=== PATIENT | female | born 1935 | race African-American/Black ===

== ENCOUNTER 2018-10-22 19:00 | Inpatient (IN) ==
[2018-10-22] MEDS ORDERED: ONDANSETRON 4 MG/2 ML VIAL IV STA (19:56)
[2018-10-22] MEDS ORDERED: MORPHINE 4 MG/1 ML VIAL IV STA (19:56)
[2018-10-22 20:04] LABS: Basophils % 0.2 % (0.0-0.8); Eosinophils # 0.1 10*3/uL (0.0-0.87); Eosinophils % 1.2 % (0.00-10.9); Immature Granulocytes % 0.4 %; Immature Granulocytes Absolute 0.03 #; Lymphocytes % 12.4 % (21.3-54.2); Mean Corpuscular Volume 87.1 FL (87-102); Mean Platelet Volume 9.4 FL (9.6-12.0); Monocytes % 2.3 % (1.7-12.7); Neutrophils % 83.5 % (38.7-73.9); Platelet Count 268 T/CUMM (130-400); Red Blood Count 2.87 MC/CUMM (3.8-5.5); Red Cell Distribution Width 17.1 % (9.3-17.3); White Blood Count 8.3 T/CUMM (4-12)
[2018-10-22 20:36] LABS: Albumin 3.2 G/DL (3.4-5.0); Bilirubin,Total 0.5 MG/DL (0.2-1.0); Calcium 8.7 MG/DL (8.5-10.1); Osmolality,Calculated 270.5 MOS/KG (273-304); Total Protein 6.8 G/DL (6.4-8.3)
[2018-10-22 20:47] LABS: Apearance,Urine CLEAR (Clear); Bilirubin,Urine Negative (Negative); Blood, Urine Negative (Negative); Glucose,Urine (UA) Negative (Negative); Ketones,Urine Negative (Negative); Mucus,Urine Occasional /LPF (Occasional); Nitrite,Urine Negative (Negative); Protein,Urine >=500 MG/DL; RBC,Urine 1 /HPF (0-4); Urine Color Yellow (Yellow); Urine Specific Gravity 1.009 (1.001-1.035); Urine Urobilinogen < 2.0 EU/DL (0.2-1.0); WBC,Urine 1 /HPF (0-6)
[2018-10-22 21:02] LABS: Band Neutrophils 1 % (0-10); Eosinophils 1 % (0-10); Lymphocytes 12 % (20-55); Platelet Estimate Normal; Segmented Neutrophils 86 % (50-85); Total Cells Counted 100
[2018-10-22] MEDS ORDERED: KETOROLAC 30 MG/1 ML VIAL IV STA (22:21)
[2018-10-22] MEDS ORDERED: DEXTROSE 50% 25 GM/50 ML VIAL IV PRN (23:34)
[2018-10-22] MEDS ORDERED: ACETAMINOPHEN 325 MG TABLET PO PRN (23:34)
[2018-10-22] MEDS ORDERED: ONDANSETRON 4 MG/2 ML VIAL IV PRN (23:34)
[2018-10-22] MEDS ORDERED: GLUCAGON 1 MG VIAL IM PRN (23:34)
[2018-10-22] MEDS ORDERED: ENOXAPARIN 30 MG/0.3 ML SYRINGE SUBCUT SCH (23:45)
[2018-10-23] MEDS: SODIUM CHLORIDE 0.9% 1,000 ML IV SCH ×2 (02:46→07:47)
[2018-10-23] MEDS: INSULIN REGULAR 100 UNIT/ML SUBCUT SCH ×5 (02:47→20:43)
[2018-10-23 05:33] LABS: Basophils % 0.4 % (0.0-0.8); Eosinophils # 0.1 10*3/uL (0.0-0.87); Eosinophils % 1.4 % (0.00-10.9); Hematocrit 22.8 VOL% (35.7-47.0); Hemoglobin 7.2 GM/DL (12.0-16.0); Immature Granulocytes % 0.4 %; Immature Granulocytes Absolute 0.02 #; Lymphocytes # 0.9 10*3/uL (1.4-4.0); Lymphocytes % 16.1 % (21.3-54.2); Mean Corpuscular HGB Conc 31.6 GM/DL (32-36); Mean Corpuscular Volume 89.4 FL (87-102); Mean Platelet Volume 9.9 FL (9.6-12.0); Monocytes % 2.5 % (1.7-12.7); Neutrophils % 79.2 % (38.7-73.9); Platelet Count 210 T/CUMM (130-400); Red Blood Count 2.55 MC/CUMM (3.8-5.5); White Blood Count 5.6 T/CUMM (4-12)
[2018-10-23 05:51] LABS: Calcium 8.1 MG/DL (8.5-10.1); Osmolality,Calculated 270.4 MOS/KG (273-304)
[2018-10-23] MEDS ORDERED: SODIUM CHLORIDE 0.9% 1,000 ML IV PRN (07:10)
[2018-10-23] MEDS: PANTOPRAZOLE 40 MG TABLET PO SCH (08:59)
[2018-10-23] MEDS ORDERED: amLODIPine 10 MG TABLET PO SCH (09:00)
[2018-10-23] MEDS ORDERED: LOSARTAN 25 MG TABLET PO SCH (09:00)
[2018-10-23] MEDS: predniSONE 10 MG TABLET PO SCH ×2 (09:01→20:43)
[2018-10-23] MEDS ORDERED: hydrALAZINE 20 MG/1 ML VIAL IV ONE (11:28)
[2018-10-23] MEDS ORDERED: FUROSEMIDE 20 MG/2 ML VIAL IV ONE (12:53)
[2018-10-23] MEDS: HEPARIN 5,000 UNIT/1 ML VIAL SUBCUT SCH ×2 (14:42→18:55)
[2018-10-23] MEDS ORDERED: cloNIDine 0.3 MG/24 HR PATCH TRANSDERM SCH (15:00)
[2018-10-23] MEDS: hydrALAZINE 20 MG/1 ML VIAL IV PRN (16:16)
[2018-10-23 17:47] LABS: % Iron Saturation 47.5 % (18-50)
[2018-10-23] MEDS: clonazePAM 0.5 MG TABLET PO SCH (20:43)
[2018-10-24] MEDS: HEPARIN 5,000 UNIT/1 ML VIAL SUBCUT SCH ×4 (00:33→17:50)
[2018-10-24] MEDS: hydrALAZINE 20 MG/1 ML VIAL IV PRN (03:55)
[2018-10-24 05:55] LABS: Risk Ratio 2.3; VLDL CHOLESTEROL 14.6 MG/DL
[2018-10-24 08:08] LABS: Hematocrit 29.8 VOL% (35.7-47.0); Hemoglobin 9.7 GM/DL (12.0-16.0); Immature Granulocytes % 0.4 %; Immature Granulocytes Absolute 0.02 #; Lymphocytes # 0.4 10*3/uL (1.4-4.0); Lymphocytes % 7.8 % (21.3-54.2); Mean Corpuscular HGB Conc 32.6 GM/DL (32-36); Mean Corpuscular Volume 88.2 FL (87-102); Mean Platelet Volume 10.7 FL (9.6-12.0); Monocytes % 0.8 % (1.7-12.7); Platelet Count 197 T/CUMM (130-400); Red Blood Count 3.38 MC/CUMM (3.8-5.5); White Blood Count 5.1 T/CUMM (4-12)
[2018-10-24 08:19] LABS: Albumin 2.7 G/DL (3.4-5.0); Bilirubin,Total 0.7 MG/DL (0.2-1.0); Osmolality,Calculated 277.4 MOS/KG (273-304); Total Protein 6.7 G/DL (6.4-8.3)
[2018-10-24] MEDS: amLODIPine 10 MG TABLET PO SCH (08:23)
[2018-10-24] MEDS: INSULIN REGULAR 100 UNIT/ML SUBCUT SCH ×4 (08:23→20:36)
[2018-10-24] MEDS: PANTOPRAZOLE 40 MG TABLET PO SCH (08:24)
[2018-10-24] MEDS: predniSONE 10 MG TABLET PO SCH ×2 (08:24→20:50)
[2018-10-24] MEDS: clonazePAM 0.5 MG TABLET PO SCH ×2 (08:24→20:50)
[2018-10-24 08:27] LABS: Hypochromasia 1+; Lymphocytes 8 % (20-55); Ovalocytes Slight; Platelet Estimate Adequate; Segmented Neutrophils 92 % (50-85); Total Cells Counted 100
[2018-10-24 11:30] LABS: Calcium 8.9 MG/DL (8.5-10.1); Osmolality,Calculated 279.4 MOS/KG (273-304)
[2018-10-24] MEDS: METOPROLOL TARTRATE 25 MG TABLET PO SCH ×2 (11:55→20:50)
[2018-10-24] MEDS: CLOTRIMAZOLE 1% CREAM 15 GM TUBE TOP SCH (22:05)
[2018-10-25] MEDS: HEPARIN 5,000 UNIT/1 ML VIAL SUBCUT SCH ×2 (02:05→08:48)
[2018-10-25 05:55] LABS: Hemoglobin 9.3 GM/DL (12.0-16.0); Immature Granulocytes % 1.1 %; Immature Granulocytes Absolute 0.03 #; Lymphocytes # 0.5 10*3/uL (1.4-4.0); Mean Corpuscular HGB Conc 33.2 GM/DL (32-36); Mean Corpuscular Volume 87.5 FL (87-102); Mean Platelet Volume 9.8 FL (9.6-12.0); Monocytes % 1.8 % (1.7-12.7); Neutrophils % 78.1 % (38.7-73.9); Platelet Count 162 T/CUMM (130-400); Red Cell Distribution Width 15.1 % (9.3-17.3); White Blood Count 2.8 T/CUMM (4-12)
[2018-10-25 06:08] LABS: Albumin 2.5 G/DL (3.4-5.0); Bilirubin,Total 0.5 MG/DL (0.2-1.0); Calcium 8.5 MG/DL (8.5-10.1); Osmolality,Calculated 281.4 MOS/KG (273-304); Total Protein 6.2 G/DL (6.4-8.3)
[2018-10-25 07:18] VITALS: BP 184/80
[2018-10-25] MEDS: clonazePAM 0.5 MG TABLET PO SCH (08:45)
[2018-10-25] MEDS: predniSONE 10 MG TABLET PO SCH (08:45)
[2018-10-25] MEDS: PANTOPRAZOLE 40 MG TABLET PO SCH (08:46)
[2018-10-25] MEDS: METOPROLOL TARTRATE 25 MG TABLET PO SCH (08:46)
[2018-10-25] MEDS: amLODIPine 10 MG TABLET PO SCH (08:46)
[2018-10-25] MEDS: CLOTRIMAZOLE 1% CREAM 15 GM TUBE TOP SCH (08:47)
[2018-10-25] MEDS: INSULIN REGULAR 100 UNIT/ML SUBCUT SCH (08:48)
== END 2018-10-25 10:45 | disposition home health service (06) | DRG 554 ==
LOC: N.ED 19:00 → N.EDINP 19:00 → N.5E 10-23 00:32
PROVIDERS: ADMIT Family Medicine; ATTEND Family Medicine

== ENCOUNTER 2018-11-02 09:02 | Inpatient (IN) ==
[2018-11-02] MEDS ORDERED: DEXTROSE 50% 25 GM/50 ML SYRINGE IV ONE ×2 (09:25→11:40)
[2018-11-02] MEDS ORDERED: DEXTROSE 50% 25 GM/50 ML VIAL IV STA (09:35)
[2018-11-02 10:10] LABS: Eosinophils % 3.8 % (0.00-10.9); Hematocrit 23.9 VOL% (35.7-47.0); Hemoglobin 7.7 GM/DL (12.0-16.0); Lymphocytes # 0.5 10*3/uL (1.4-4.0); Lymphocytes % 67.9 % (21.3-54.2); Mean Corpuscular HGB Conc 32.2 GM/DL (32-36); Mean Corpuscular Volume 88.5 FL (87-102); Monocytes % 14.1 % (1.7-12.7); Neutrophils % 14.2 % (38.7-73.9); Platelet Count 46 T/CUMM (130-400); Red Cell Distribution Width 14.8 % (9.3-17.3)
[2018-11-02 10:17] LABS: White Blood Count 0.8 T/CUMM (4-12)
[2018-11-02 10:28] LABS: Albumin 2.5 G/DL (3.4-5.0); Bilirubin,Total 0.4 MG/DL (0.2-1.0); Calcium 8.4 MG/DL (8.5-10.1); Osmolality,Calculated 286.1 MOS/KG (273-304); Total Protein 5.8 G/DL (6.4-8.3)
[2018-11-02 10:42] LABS: Apearance,Urine CLEAR (Clear); Bacteria,Urine Occasional /HPF (Few); Bilirubin,Urine Negative (Negative); Blood, Urine Negative (Negative); Glucose,Urine (UA) Negative (Negative); Ketones,Urine Negative (Negative); Mucus,Urine Occasional /LPF (Occasional); Nitrite,Urine Negative (Negative); Protein,Urine 100 MG/DL; RBC,Urine 1 /HPF (0-4); Squamous Epithelial Cell,Urine Occasional /HPF (0-10); Urine Color Yellow (Yellow); Urine Specific Gravity 1.013 (1.001-1.035); Urine Urobilinogen < 2.0 EU/DL (0.2-1.0); WBC,Urine 1 /HPF (0-6)
[2018-11-02 10:52] LABS: Eosinophils 7 % (0-10); Hypochromasia 1+; Lymphocytes 71 % (20-55); Nucleated Red Blood Cells 1 (0-5); Platelet Estimate Decreased; Segmented Neutrophils 13 % (50-85); Total Cells Counted 100
[2018-11-02 10:53] LABS: Atypical Lymphocytes Few
[2018-11-02] MEDS ORDERED: DEXTROSE 50% 25 GM/50 ML VIAL IV PRN (11:41)
[2018-11-02] MEDS ORDERED: ONDANSETRON 4 MG/2 ML VIAL IV PRN (11:41)
[2018-11-02] MEDS ORDERED: ACETAMINOPHEN 325 MG TABLET PO PRN (11:41)
[2018-11-02] MEDS ORDERED: GLUCAGON 1 MG VIAL IM PRN (11:41)
[2018-11-02] MEDS ORDERED: SODIUM CHLORIDE 0.9% 1,000 ML IV PRN (11:43)
[2018-11-02] MEDS: DEXTROSE 5% NACL 0.45% 1,000 ML IV SCH (11:56)
[2018-11-02 15:11] LABS: Ferritin 918.7 ng/ml (8-252)
[2018-11-02 15:17] LABS: Folate 11.7 NG/ML (5.4-24.0)
[2018-11-02] MEDS ORDERED: amLODIPine 5 MG TABLET PO ONE (18:49)
[2018-11-02] MEDS: clonazePAM 0.5 MG TABLET PO SCH (21:06)
[2018-11-02] MEDS: DOCUSATE SODIUM 100 MG CAPSULE PO SCH (21:06)
[2018-11-02] MEDS: predniSONE 10 MG TABLET PO SCH (21:06)
[2018-11-02] MEDS: FERROUS SULFATE 325 MG TABLET PO SCH (21:06)
[2018-11-02] MEDS: SIMVASTATIN 10 MG TABLET PO SCH (21:06)
[2018-11-03] MEDS: DEXTROSE 5% NACL 0.45% 1,000 ML IV SCH ×2 (02:58→14:05)
[2018-11-03 05:39] LABS: Hematocrit 33.9 VOL% (35.7-47.0); Hemoglobin 11.2 GM/DL (12.0-16.0); Immature Granulocytes % 1.9 %; Immature Granulocytes Absolute 0.01 #; Lymphocytes # 0.3 10*3/uL (1.4-4.0); Lymphocytes % 64.2 % (21.3-54.2); Mean Corpuscular Volume 86.7 FL (87-102); Mean Platelet Volume 10.6 FL (9.6-12.0); Monocytes % 13.2 % (1.7-12.7); Neutrophils % 20.7 % (38.7-73.9); Platelet Count 69 T/CUMM (130-400); Red Blood Count 3.91 MC/CUMM (3.8-5.5); Red Cell Distribution Width 14.3 % (9.3-17.3)
[2018-11-03 05:46] LABS: White Blood Count 0.5 T/CUMM (4-12)
[2018-11-03 06:02] LABS: Calcium 8.9 MG/DL (8.5-10.1); Osmolality,Calculated 285.1 MOS/KG (273-304)
[2018-11-03 06:06] LABS: Hypochromasia Slight; Lymphocytes 60 % (20-55); Ovalocytes Slight; Platelet Estimate Decreased; Segmented Neutrophils 40 % (50-85); Total Cells Counted 100
[2018-11-03] MEDS: FEXOFENADINE 180 MG TABLET PO SCH (09:42)
[2018-11-03] MEDS: cloNIDine 0.1 MG TABLET PO SCH ×2 (09:43→21:09)
[2018-11-03] MEDS: FERROUS SULFATE 325 MG TABLET PO SCH ×2 (09:43→21:08)
[2018-11-03] MEDS: hydrALAZINE 10 MG TABLET PO SCH ×4 (09:43→21:08)
[2018-11-03] MEDS: clonazePAM 0.5 MG TABLET PO SCH ×2 (09:43→21:08)
[2018-11-03] MEDS: amLODIPine 10 MG TABLET PO SCH (09:43)
[2018-11-03] MEDS: predniSONE 10 MG TABLET PO SCH ×2 (09:43→21:09)
[2018-11-03] MEDS: ALLOPURINOL 100 MG TABLET PO SCH (09:43)
[2018-11-03] MEDS: PANTOPRAZOLE 40 MG TABLET PO SCH (09:43)
[2018-11-03] MEDS: DOCUSATE SODIUM 100 MG CAPSULE PO SCH ×2 (09:43→21:09)
[2018-11-03] MEDS: FOLIC ACID 1 MG TABLET PO SCH (09:43)
[2018-11-03] MEDS ORDERED: LEUCOVORIN IV SCH (10:25)
[2018-11-03] MEDS ORDERED: DEXTROSE 5% IV SCH (10:25)
[2018-11-03] MEDS: INSULIN REGULAR 100 UNIT/ML SUBCUT SCH ×2 (16:59→21:09)
[2018-11-03] MEDS: LEUCOVORIN IV SCH (21:07)
[2018-11-03] MEDS: DEXTROSE 5% IV SCH (21:07)
[2018-11-03] MEDS: SIMVASTATIN 10 MG TABLET PO SCH (21:08)
[2018-11-04 04:53] LABS: Basophils % 1.2 % (0.0-0.8); Eosinophils % 1.2 % (0.00-10.9); Hematocrit 31.9 VOL% (35.7-47.0); Hemoglobin 10.5 GM/DL (12.0-16.0); Immature Granulocytes % 1.2 %; Immature Granulocytes Absolute 0.01 #; Lymphocytes # 0.5 10*3/uL (1.4-4.0); Lymphocytes % 62.2 % (21.3-54.2); Mean Corpuscular HGB Conc 32.9 GM/DL (32-36); Mean Corpuscular Volume 85.8 FL (87-102); Mean Platelet Volume 10.8 FL (9.6-12.0); Monocytes % 19.5 % (1.7-12.7); Neutrophils % 14.7 % (38.7-73.9); Platelet Count 138 T/CUMM (130-400); Red Blood Count 3.72 MC/CUMM (3.8-5.5); Red Cell Distribution Width 14.2 % (9.3-17.3)
[2018-11-04 05:02] LABS: White Blood Count 0.8 T/CUMM (4-12)
[2018-11-04 05:18] LABS: Calcium 9.2 MG/DL (8.5-10.1); Osmolality,Calculated 276.4 MOS/KG (273-304)
[2018-11-04 05:51] LABS: Anisocytosis 1+; Band Neutrophils 2 % (0-10); Hypochromasia 1+; Lymphocytes 70 % (20-55); Microcytosis 1+; Ovalocytes 1+; Platelet Estimate Adequate; Segmented Neutrophils 16 % (50-85); Total Cells Counted 100
[2018-11-04] MEDS: DEXTROSE 5% NACL 0.45% 1,000 ML IV SCH ×3 (10:13→23:42)
[2018-11-04] MEDS: FERROUS SULFATE 325 MG TABLET PO SCH ×2 (10:14→20:42)
[2018-11-04] MEDS: clonazePAM 0.5 MG TABLET PO SCH ×2 (10:14→20:41)
[2018-11-04] MEDS: predniSONE 10 MG TABLET PO SCH ×2 (10:14→20:41)
[2018-11-04] MEDS: INSULIN REGULAR 100 UNIT/ML SUBCUT SCH ×4 (10:14→20:57)
[2018-11-04] MEDS: PANTOPRAZOLE 40 MG TABLET PO SCH (10:14)
[2018-11-04] MEDS: cloNIDine 0.1 MG TABLET PO SCH ×2 (10:14→20:41)
[2018-11-04] MEDS: FEXOFENADINE 180 MG TABLET PO SCH (10:14)
[2018-11-04] MEDS: FOLIC ACID 1 MG TABLET PO SCH (10:14)
[2018-11-04] MEDS: ALLOPURINOL 100 MG TABLET PO SCH (10:14)
[2018-11-04] MEDS: amLODIPine 10 MG TABLET PO SCH (10:14)
[2018-11-04] MEDS: hydrALAZINE 10 MG TABLET PO SCH ×4 (10:14→20:42)
[2018-11-04] MEDS: DOCUSATE SODIUM 100 MG CAPSULE PO SCH ×2 (10:14→20:42)
[2018-11-04] MEDS: DEXTROSE 5% IV SCH ×2 (14:36→20:50)
[2018-11-04] MEDS: LEUCOVORIN IV SCH ×2 (14:36→20:50)
[2018-11-05 05:54] LABS: Eosinophils % 0.9 % (0.00-10.9); Hematocrit 32.8 VOL% (35.7-47.0); Hemoglobin 10.9 GM/DL (12.0-16.0); Immature Granulocytes % 1.8 %; Immature Granulocytes Absolute 0.02 #; Lymphocytes # 0.7 10*3/uL (1.4-4.0); Mean Corpuscular HGB Conc 33.2 GM/DL (32-36); Mean Corpuscular Volume 86.3 FL (87-102); Mean Platelet Volume 9.8 FL (9.6-12.0); Monocytes % 25.5 % (1.7-12.7); Neutrophils % 11.8 % (38.7-73.9); Platelet Count 207 T/CUMM (130-400); White Blood Count 1.1 T/CUMM (4-12)
[2018-11-05 06:15] LABS: Calcium 9.1 MG/DL (8.5-10.1); Osmolality,Calculated 274.4 MOS/KG (273-304)
[2018-11-05 07:02] LABS: Anisocytosis 1+; Band Neutrophils 6 % (0-10); Lymphocytes 72 % (20-55); Platelet Estimate Normal; Segmented Neutrophils 6 % (50-85); Total Cells Counted 100
[2018-11-05 07:03] LABS: Poikilocytosis Slight
[2018-11-05] MEDS: INSULIN REGULAR 100 UNIT/ML SUBCUT SCH ×4 (09:10→21:52)
[2018-11-05] MEDS: DEXTROSE 5% NACL 0.45% 1,000 ML IV SCH ×2 (09:11→13:09)
[2018-11-05] MEDS: FOLIC ACID 1 MG TABLET PO SCH (09:24)
[2018-11-05] MEDS: DOCUSATE SODIUM 100 MG CAPSULE PO SCH ×2 (09:24→21:03)
[2018-11-05] MEDS: predniSONE 10 MG TABLET PO SCH ×2 (09:24→21:04)
[2018-11-05] MEDS: cloNIDine 0.1 MG TABLET PO SCH ×3 (09:24→21:03)
[2018-11-05] MEDS: ALLOPURINOL 100 MG TABLET PO SCH (09:24)
[2018-11-05] MEDS: clonazePAM 0.5 MG TABLET PO SCH ×2 (09:24→21:03)
[2018-11-05] MEDS: FERROUS SULFATE 325 MG TABLET PO SCH ×2 (09:24→21:03)
[2018-11-05] MEDS: hydrALAZINE 10 MG TABLET PO SCH ×4 (09:24→21:03)
[2018-11-05] MEDS: PANTOPRAZOLE 40 MG TABLET PO SCH (09:24)
[2018-11-05] MEDS: amLODIPine 10 MG TABLET PO SCH (09:24)
[2018-11-05] MEDS: FEXOFENADINE 180 MG TABLET PO SCH (09:24)
[2018-11-05] MEDS ORDERED: cloNIDine 0.1 MG TABLET PO SCH (12:00)
[2018-11-05] MEDS: cloNIDine 0.1 MG TABLET PO PRN (13:10)
[2018-11-06] MEDS: DEXTROSE 5% NACL 0.45% 1,000 ML IV SCH (02:29)
[2018-11-06 05:28] LABS: Basophils % 0.7 % (0.0-0.8); Eosinophils % 0.7 % (0.00-10.9); Hematocrit 31.2 VOL% (35.7-47.0); Immature Granulocytes % 2.2 %; Immature Granulocytes Absolute 0.03 #; Lymphocytes # 0.7 10*3/uL (1.4-4.0); Lymphocytes % 46.8 % (21.3-54.2); Mean Corpuscular HGB Conc 32.1 GM/DL (32-36); Mean Corpuscular Volume 86.7 FL (87-102); Mean Platelet Volume 9.8 FL (9.6-12.0); Monocytes % 28.8 % (1.7-12.7); Neutrophils % 20.8 % (38.7-73.9); Platelet Count 254 T/CUMM (130-400); Red Cell Distribution Width 14.2 % (9.3-17.3); White Blood Count 1.4 T/CUMM (4-12)
[2018-11-06 05:52] LABS: Atypical Lymphocytes Few; Band Neutrophils 1 % (0-10); Hypochromasia 1+; Lymphocytes 48 % (20-55); Platelet Estimate Adequate; Segmented Neutrophils 25 % (50-85); Total Cells Counted 100
[2018-11-06 06:08] LABS: Calcium 8.6 MG/DL (8.5-10.1); Osmolality,Calculated 270.8 MOS/KG (273-304)
[2018-11-06] MEDS: INSULIN REGULAR 100 UNIT/ML SUBCUT SCH ×4 (09:54→22:00)
[2018-11-06] MEDS: hydrALAZINE 10 MG TABLET PO SCH ×4 (09:59→22:00)
[2018-11-06] MEDS: FERROUS SULFATE 325 MG TABLET PO SCH ×2 (09:59→21:59)
[2018-11-06] MEDS: FOLIC ACID 1 MG TABLET PO SCH (09:59)
[2018-11-06] MEDS: PANTOPRAZOLE 40 MG TABLET PO SCH (09:59)
[2018-11-06] MEDS: FEXOFENADINE 180 MG TABLET PO SCH (09:59)
[2018-11-06] MEDS: cloNIDine 0.1 MG TABLET PO SCH ×3 (09:59→21:59)
[2018-11-06] MEDS: DOCUSATE SODIUM 100 MG CAPSULE PO SCH ×2 (09:59→22:00)
[2018-11-06] MEDS: ALLOPURINOL 100 MG TABLET PO SCH (09:59)
[2018-11-06] MEDS: amLODIPine 10 MG TABLET PO SCH (10:00)
[2018-11-06] MEDS: predniSONE 10 MG TABLET PO SCH ×2 (10:00→22:00)
[2018-11-06] MEDS: clonazePAM 0.5 MG TABLET PO SCH ×2 (10:00→21:59)
[2018-11-07] MEDS: cloNIDine 0.1 MG TABLET PO PRN (01:17)
[2018-11-07] MEDS: DEXTROSE 5% NACL 0.45% 1,000 ML IV SCH (07:05)
[2018-11-07] MEDS: ALLOPURINOL 100 MG TABLET PO SCH (08:30)
[2018-11-07] MEDS: FEXOFENADINE 180 MG TABLET PO SCH (08:30)
[2018-11-07] MEDS: DOCUSATE SODIUM 100 MG CAPSULE PO SCH (08:30)
[2018-11-07] MEDS: PANTOPRAZOLE 40 MG TABLET PO SCH (08:30)
[2018-11-07] MEDS: FOLIC ACID 1 MG TABLET PO SCH (08:30)
[2018-11-07] MEDS: clonazePAM 0.5 MG TABLET PO SCH (08:30)
[2018-11-07] MEDS: amLODIPine 10 MG TABLET PO SCH (08:30)
[2018-11-07] MEDS: predniSONE 10 MG TABLET PO SCH (08:31)
[2018-11-07] MEDS: hydrALAZINE 10 MG TABLET PO SCH (08:31)
[2018-11-07] MEDS: FERROUS SULFATE 325 MG TABLET PO SCH (08:31)
[2018-11-07] MEDS: INSULIN REGULAR 100 UNIT/ML SUBCUT SCH ×2 (08:47→10:54)
[2018-11-07] MEDS ORDERED: hydrALAZINE 25 MG TABLET PO SCH (12:30)
[2018-11-07 12:31] VITALS: BP 189/81
== END 2018-11-07 15:00 | disposition swing bed (61) | DRG 917 ==
LOC: N.EDINP 09:02 → N.ED 09:02 → N.TELES 12:11
PROVIDERS: ADMIT Family Medicine; ATTEND Family Medicine

== ENCOUNTER 2018-12-16 00:26 | Inpatient (IN) ==
[2018-12-16 01:40] LABS: Basophils % 0.4 % (0.0-0.8); Eosinophils # 0.2 10*3/uL (0.0-0.87); Eosinophils % 2.7 % (0.00-10.9); Hematocrit 23.3 VOL% (35.7-47.0); Hemoglobin 7.5 GM/DL (12.0-16.0); Immature Granulocytes % 0.8 %; Immature Granulocytes Absolute 0.06 #; Lymphocytes # 1.7 10*3/uL (1.4-4.0); Lymphocytes % 22.4 % (21.3-54.2); Mean Corpuscular HGB Conc 32.2 GM/DL (32-36); Mean Platelet Volume 9.9 FL (9.6-12.0); Monocytes % 9.3 % (1.7-12.7); Neutrophils % 64.4 % (38.7-73.9); Platelet Count 198 T/CUMM (130-400); Red Blood Count 2.59 MC/CUMM (3.8-5.5); Red Cell Distribution Width 17.4 % (9.3-17.3); White Blood Count 7.8 T/CUMM (4-12)
[2018-12-16 01:57] LABS: Apearance,Urine CLEAR (Clear); Bilirubin,Urine Negative (Negative); Blood, Urine Small mg/dL (Negative); Glucose,Urine (UA) Negative (Negative); Hyaline Casts,Urine 4 /LPF (0-3); Ketones,Urine Negative (Negative); Nitrite,Urine Negative (Negative); Protein,Urine 100 MG/DL; RBC,Urine 1 /HPF (0-4); Squamous Epithelial Cell,Urine Occasional /HPF (0-10); Urine Color Yellow (Yellow); Urine Urobilinogen < 2.0 EU/DL (0.2-1.0); WBC,Urine 15 /HPF (0-6)
[2018-12-16 02:01] LABS: Albumin 2.7 G/DL (3.4-5.0); Bilirubin,Total 0.8 MG/DL (0.2-1.0); Calcium 8.6 MG/DL (8.5-10.1); Osmolality,Calculated 284.3 MOS/KG (273-304); Total Protein 5.8 G/DL (6.4-8.3)
[2018-12-16] MEDS ORDERED: SODIUM CHLORIDE 0.9% 1,000 ML IV STA (02:09)
[2018-12-16] MEDS ORDERED: cefTRIAXone 1,000 MG in SODIUM CHLORIDE 0.9% 100 ML IV STA (02:10)
[2018-12-16] MEDS ORDERED: DEXTROSE 50% 25 GM/50 ML VIAL IV PRN (02:25)
[2018-12-16] MEDS ORDERED: ONDANSETRON 4 MG/2 ML VIAL IV PRN (02:25)
[2018-12-16] MEDS ORDERED: GLUCAGON 1 MG VIAL IM PRN (02:25)
[2018-12-16] MEDS ORDERED: DEXTROSE 5% NACL 0.9% 1,000 ML IV SCH (02:30)
[2018-12-16] MEDS: SODIUM CHLORIDE 0.9% 1,000 ML IV SCH ×5 (05:02→23:15)
[2018-12-16 05:33] LABS: Eosinophils 3 % (0-10); Lymphocytes 23 % (20-55); Segmented Neutrophils 63 % (50-85); Total Cells Counted 100
[2018-12-16 05:34] LABS: Anisocytosis 1+; Platelet Estimate Adequate
[2018-12-16] MEDS: DOCUSATE SODIUM 100 MG CAPSULE PO SCH ×2 (08:57→21:03)
[2018-12-16] MEDS ORDERED: PANTOPRAZOLE 40 MG VIAL IV SCH (09:00)
[2018-12-16] MEDS ORDERED: INSULIN GLARGINE 100 UNIT/ML SUBCUT PRN (10:41)
[2018-12-16] MEDS: amLODIPine 10 MG TABLET PO SCH (11:31)
[2018-12-16] MEDS: POTASSIUM CHLORIDE 8 MEQ CAPSULE PO SCH (11:31)
[2018-12-16] MEDS: hydrALAZINE 25 MG TABLET PO SCH ×2 (14:56→21:03)
[2018-12-16] MEDS: NYSTATIN 500,000 UNIT/5 ML UDCUP SWISH/SWAL SCH ×3 (14:58→21:03)
[2018-12-16] MEDS: glipiZIDE 5 MG TABLET PO SCH (16:32)
[2018-12-16] MEDS: ACETAMINOPHEN 325 MG TABLET PO PRN (19:42)
[2018-12-16] MEDS: CLOTRIMAZOLE 1% CREAM 15 GM TUBE TOP SCH (21:02)
[2018-12-16] MEDS: clonazePAM 0.5 MG TABLET PO SCH (21:03)
[2018-12-16] MEDS: cefTRIAXone 1,000 MG in SYRINGE 1 EACH IV SCH (21:03)
[2018-12-16] MEDS: FERROUS SULFATE 325 MG TABLET PO SCH (21:03)
[2018-12-17 05:06] LABS: Calcium 8.2 MG/DL (8.5-10.1); Osmolality,Calculated 291.7 MOS/KG (273-304)
[2018-12-17 05:41] LABS: Basophils % 0.6 % (0.0-0.8); Eosinophils # 0.3 10*3/uL (0.0-0.87); Eosinophils % 3.9 % (0.00-10.9); Hematocrit 19.9 VOL% (35.7-47.0); Immature Granulocytes % 0.8 %; Immature Granulocytes Absolute 0.06 #; Lymphocytes # 1.8 10*3/uL (1.4-4.0); Lymphocytes % 24.2 % (21.3-54.2); Mean Corpuscular HGB Conc 32.2 GM/DL (32-36); Monocytes % 9.5 % (1.7-12.7); Platelet Count 183 T/CUMM (130-400); Red Blood Count 2.21 MC/CUMM (3.8-5.5); Red Cell Distribution Width 17.7 % (9.3-17.3); White Blood Count 7.2 T/CUMM (4-12)
[2018-12-17 05:44] LABS: Hemoglobin 6.4 GM/DL (12.0-16.0)
[2018-12-17] MEDS ORDERED: FUROSEMIDE 40 MG/4 ML VIAL IV PRN (06:11)
[2018-12-17] MEDS: SODIUM CHLORIDE 0.9% 1,000 ML IV SCH ×2 (07:22→21:39)
[2018-12-17] MEDS: hydrALAZINE 25 MG TABLET PO SCH ×3 (08:34→21:32)
[2018-12-17] MEDS: NYSTATIN 500,000 UNIT/5 ML UDCUP SWISH/SWAL SCH ×4 (08:34→21:32)
[2018-12-17] MEDS: FERROUS SULFATE 325 MG TABLET PO SCH ×2 (08:34→21:32)
[2018-12-17] MEDS: POTASSIUM CHLORIDE 8 MEQ CAPSULE PO SCH (08:34)
[2018-12-17] MEDS: FOLIC ACID 1 MG TABLET PO SCH (08:34)
[2018-12-17] MEDS: ALLOPURINOL 100 MG TABLET PO SCH (08:34)
[2018-12-17] MEDS: CLOTRIMAZOLE 1% CREAM 15 GM TUBE TOP SCH ×2 (08:35→21:32)
[2018-12-17] MEDS: PANTOPRAZOLE 40 MG TABLET PO SCH (08:35)
[2018-12-17] MEDS: clonazePAM 0.5 MG TABLET PO SCH ×2 (08:35→21:32)
[2018-12-17] MEDS: glipiZIDE 5 MG TABLET PO SCH ×2 (08:35→17:07)
[2018-12-17] MEDS: FEXOFENADINE 180 MG TABLET PO SCH (08:35)
[2018-12-17] MEDS: DOCUSATE SODIUM 100 MG CAPSULE PO SCH ×2 (08:35→21:32)
[2018-12-17] MEDS: amLODIPine 10 MG TABLET PO SCH (08:35)
[2018-12-17 09:28] LABS: % Iron Saturation 41.1 % (18-50); Ferritin 1295.9 ng/ml (8-252)
[2018-12-17] MEDS: ACETAMINOPHEN 325 MG TABLET PO PRN (17:06)
[2018-12-17] MEDS: cefTRIAXone 1,000 MG in SYRINGE 1 EACH IV SCH (21:29)
[2018-12-18] MEDS: SODIUM CHLORIDE 0.9% 1,000 ML IV SCH ×3 (06:29→19:53)
[2018-12-18] MEDS: COLCHICINE 0.6 MG CAPSULE PO PRN (07:51)
[2018-12-18] MEDS: ACETAMINOPHEN 325 MG TABLET PO PRN (07:52)
[2018-12-18 08:10] LABS: Immature Granulocytes % 0.9 %; Immature Granulocytes Absolute 0.09 #; Monocytes % 8.7 % (1.7-12.7)
[2018-12-18 08:16] LABS: Basophils # 0.1 10*3/uL (0.0-0.2); Basophils % 0.5 % (0.0-0.8); Eosinophils # 0.2 10*3/uL (0.0-0.87); Eosinophils % 2.3 % (0.00-10.9); Hematocrit 29.3 VOL% (35.7-47.0); Lymphocytes # 1.8 10*3/uL (1.4-4.0); Mean Corpuscular HGB Conc 33.8 GM/DL (32-36); Mean Corpuscular Volume 88.3 FL (87-102); Mean Platelet Volume 10.1 FL (9.6-12.0); Neutrophils % 70.6 % (38.7-73.9); Platelet Count 192 T/CUMM (130-400); Red Cell Distribution Width 16.7 % (9.3-17.3)
[2018-12-18 08:18] LABS: Red Blood Count 3.32 MC/CUMM (3.8-5.5); White Blood Count 10.6 T/CUMM (4-12)
[2018-12-18 08:19] LABS: Hemoglobin 9.9 GM/DL (12.0-16.0)
[2018-12-18 08:28] LABS: Osmolality,Calculated 284.1 MOS/KG (273-304)
[2018-12-18] MEDS ORDERED: MAGNESIUM HYDROXIDE SUSP 30 ML UDCUP PO PRN (08:35)
[2018-12-18] MEDS: DOCUSATE SODIUM 100 MG CAPSULE PO SCH ×2 (09:48→23:01)
[2018-12-18] MEDS: glipiZIDE 5 MG TABLET PO SCH ×2 (09:48→18:17)
[2018-12-18] MEDS: FEXOFENADINE 180 MG TABLET PO SCH (09:48)
[2018-12-18] MEDS: clonazePAM 0.5 MG TABLET PO SCH ×2 (09:48→23:01)
[2018-12-18] MEDS: FOLIC ACID 1 MG TABLET PO SCH (09:48)
[2018-12-18] MEDS: amLODIPine 10 MG TABLET PO SCH (09:48)
[2018-12-18] MEDS: POTASSIUM CHLORIDE 8 MEQ CAPSULE PO SCH (09:48)
[2018-12-18] MEDS: FERROUS SULFATE 325 MG TABLET PO SCH ×2 (09:48→23:01)
[2018-12-18] MEDS: PANTOPRAZOLE 40 MG TABLET PO SCH (09:50)
[2018-12-18] MEDS: NYSTATIN 500,000 UNIT/5 ML UDCUP SWISH/SWAL SCH ×4 (09:50→23:01)
[2018-12-18] MEDS: ALLOPURINOL 100 MG TABLET PO SCH (09:50)
[2018-12-18] MEDS: hydrALAZINE 25 MG TABLET PO SCH ×3 (09:50→23:01)
[2018-12-18] MEDS: CLOTRIMAZOLE 1% CREAM 15 GM TUBE TOP SCH ×2 (09:50→23:02)
[2018-12-18] MEDS: cefTRIAXone 1,000 MG in SYRINGE 1 EACH IV SCH (23:08)
[2018-12-19 04:23] LABS: Basophils # 0.1 10*3/uL (0.0-0.2); Basophils % 0.6 % (0.0-0.8); Eosinophils # 0.2 10*3/uL (0.0-0.87); Eosinophils % 2.5 % (0.00-10.9); Hematocrit 25.2 VOL% (35.7-47.0); Hemoglobin 8.2 GM/DL (12.0-16.0); Immature Granulocytes % 0.5 %; Immature Granulocytes Absolute 0.04 #; Lymphocytes # 1.7 10*3/uL (1.4-4.0); Lymphocytes % 19.9 % (21.3-54.2); Mean Corpuscular HGB Conc 32.5 GM/DL (32-36); Mean Corpuscular Volume 88.1 FL (87-102); Mean Platelet Volume 10.5 FL (9.6-12.0); Monocytes % 9.9 % (1.7-12.7); Neutrophils % 66.6 % (38.7-73.9); Platelet Count 175 T/CUMM (130-400); Red Blood Count 2.86 MC/CUMM (3.8-5.5); Red Cell Distribution Width 16.5 % (9.3-17.3); White Blood Count 8.4 T/CUMM (4-12)
[2018-12-19 04:47] LABS: Calcium 8.2 MG/DL (8.5-10.1)
[2018-12-19 06:14] LABS: Eosinophils 5 % (0-10); Hypochromasia 1+; Lymphocytes 17 % (20-55); Ovalocytes Slight; Platelet Estimate Adequate; Segmented Neutrophils 73 % (50-85); Total Cells Counted 100
[2018-12-19] MEDS: amLODIPine 10 MG TABLET PO SCH (09:55)
[2018-12-19] MEDS: FEXOFENADINE 180 MG TABLET PO SCH (09:55)
[2018-12-19] MEDS: FOLIC ACID 1 MG TABLET PO SCH (09:55)
[2018-12-19] MEDS: glipiZIDE 5 MG TABLET PO SCH ×2 (09:55→16:51)
[2018-12-19] MEDS: hydrALAZINE 25 MG TABLET PO SCH ×3 (09:56→21:38)
[2018-12-19] MEDS: DOCUSATE SODIUM 100 MG CAPSULE PO SCH ×2 (09:56→21:38)
[2018-12-19] MEDS: FERROUS SULFATE 325 MG TABLET PO SCH ×2 (09:56→21:38)
[2018-12-19] MEDS: PANTOPRAZOLE 40 MG TABLET PO SCH (09:56)
[2018-12-19] MEDS: ALLOPURINOL 100 MG TABLET PO SCH (09:58)
[2018-12-19] MEDS: NYSTATIN 500,000 UNIT/5 ML UDCUP SWISH/SWAL SCH ×4 (09:59→21:37)
[2018-12-19] MEDS: clonazePAM 0.5 MG TABLET PO SCH ×2 (09:59→21:37)
[2018-12-19] MEDS: CLOTRIMAZOLE 1% CREAM 15 GM TUBE TOP SCH ×2 (10:00→21:38)
[2018-12-19] MEDS: POTASSIUM CHLORIDE 8 MEQ CAPSULE PO SCH (10:22)
[2018-12-19] MEDS: cefTRIAXone 1,000 MG in SYRINGE 1 EACH IV SCH (21:42)
[2018-12-20] MEDS: ACETAMINOPHEN 325 MG TABLET PO PRN (03:04)
[2018-12-20] MEDS: COLCHICINE 0.6 MG CAPSULE PO PRN (03:04)
[2018-12-20 04:44] LABS: Hematocrit 24.8 VOL% (35.7-47.0); Hemoglobin 8.1 GM/DL (12.0-16.0)
[2018-12-20 05:11] LABS: Calcium 8.3 MG/DL (8.5-10.1)
[2018-12-20] MEDS: NYSTATIN 500,000 UNIT/5 ML UDCUP SWISH/SWAL SCH (09:26)
[2018-12-20] MEDS: FERROUS SULFATE 325 MG TABLET PO SCH (09:28)
[2018-12-20] MEDS: clonazePAM 0.5 MG TABLET PO SCH (09:28)
[2018-12-20] MEDS: ALLOPURINOL 100 MG TABLET PO SCH (09:28)
[2018-12-20] MEDS: glipiZIDE 5 MG TABLET PO SCH (09:28)
[2018-12-20] MEDS: amLODIPine 10 MG TABLET PO SCH (09:29)
[2018-12-20] MEDS: hydrALAZINE 25 MG TABLET PO SCH (09:29)
[2018-12-20] MEDS: POTASSIUM CHLORIDE 8 MEQ CAPSULE PO SCH (09:29)
[2018-12-20] MEDS: PANTOPRAZOLE 40 MG TABLET PO SCH (09:29)
[2018-12-20] MEDS: DOCUSATE SODIUM 100 MG CAPSULE PO SCH (09:29)
[2018-12-20] MEDS: CLOTRIMAZOLE 1% CREAM 15 GM TUBE TOP SCH (09:30)
[2018-12-20 11:13] VITALS: BP 173/78
[2018-12-20] MEDS: FEXOFENADINE 180 MG TABLET PO SCH (13:10)
[2018-12-20] MEDS: FOLIC ACID 1 MG TABLET PO SCH (13:10)
== END 2018-12-20 13:41 | disposition home health service (06) | DRG 690 ==
LOC: EDBD → EDUNIT# → N.EDINP 00:26 → N.ED 00:26 → N.5E 03:07
PROVIDERS: ADMIT Family Medicine; ATTEND Family Medicine

== ENCOUNTER 2019-01-10 14:38 | Inpatient (IN) ==
[2019-01-10] MEDS ORDERED: SODIUM CHLORIDE 0.9% 1,000 ML IV STA (15:26)
[2019-01-10] MEDS ORDERED: ONDANSETRON 4 MG/2 ML VIAL IV STA (15:26)
[2019-01-10 15:41] LABS: Basophils % 0.2 % (0.0-0.8); Eosinophils % 0.1 % (0.00-10.9); Immature Granulocytes % 0.6 %; Immature Granulocytes Absolute 0.08 #; Lymphocytes # 0.8 10*3/uL (1.4-4.0); Lymphocytes % 6.2 % (21.3-54.2); Mean Corpuscular HGB Conc 31.8 GM/DL (32-36); Mean Corpuscular Volume 94.8 FL (87-102); Mean Platelet Volume 9.8 FL (9.6-12.0); Monocytes % 3.6 % (1.7-12.7); Neutrophils % 89.3 % (38.7-73.9); Platelet Count 256 T/CUMM (130-400); Red Blood Count 2.32 MC/CUMM (3.8-5.5); Red Cell Distribution Width 18.1 % (9.3-17.3); White Blood Count 13.5 T/CUMM (4-12)
[2019-01-10 16:04] LABS: Albumin 3.2 G/DL (3.4-5.0); Bilirubin,Total 0.6 MG/DL (0.2-1.0); Calcium 9.8 MG/DL (8.5-10.1); Osmolality,Calculated 292.5 MOS/KG (273-304); Total Protein 7.5 G/DL (6.4-8.3)
[2019-01-10 16:38] LABS: % Iron Saturation 14.7 % (18-50)
[2019-01-10 16:56] LABS: Apearance,Urine CLEAR (Clear); Bilirubin,Urine Negative (Negative); Blood, Urine Negative (Negative); Glucose,Urine (UA) Negative (Negative); Ketones,Urine Negative (Negative); Mucus,Urine Occasional /LPF (Occasional); Nitrite,Urine Negative (Negative); Protein,Urine 100 MG/DL; RBC,Urine 4 /HPF (0-4); Urine Color Yellow (Yellow); Urine Specific Gravity 1.015 (1.001-1.035); Urine Urobilinogen < 2.0 EU/DL (0.2-1.0); WBC,Urine 3 /HPF (0-6)
[2019-01-10] MEDS ORDERED: ACETAMINOPHEN 325 MG TABLET PO PRN (17:20)
[2019-01-10] MEDS ORDERED: ONDANSETRON 4 MG/2 ML VIAL IV PRN (17:20)
[2019-01-10] MEDS ORDERED: LACTATED RINGERS 1,000 ML IV SCH (17:30)
[2019-01-10] MEDS ORDERED: COLCHICINE 0.6 MG CAPSULE PO PRN (20:40)
[2019-01-10] MEDS ORDERED: hydrALAZINE 20 MG/1 ML VIAL IV ONE (20:44)
[2019-01-10] MEDS ORDERED: DOCUSATE SODIUM 100 MG CAPSULE PO SCH (21:00)
[2019-01-10] MEDS: glipiZIDE 5 MG TABLET PO SCH (21:39)
[2019-01-10] MEDS: clonazePAM 0.5 MG TABLET PO SCH (21:39)
[2019-01-10] MEDS: DOCUSATE SODIUM 100 MG CAPSULE PO SCH (21:39)
[2019-01-10] MEDS: hydrALAZINE 25 MG TABLET PO SCH (21:39)
[2019-01-10] MEDS: FERROUS SULFATE 325 MG TABLET PO SCH (21:40)
[2019-01-10] MEDS: INSULIN LISPRO 100 UNIT/ML SUBCUT SCH (21:40)
[2019-01-10] MEDS: LACTATED RINGERS 1,000 ML IV SCH (21:40)
[2019-01-10] MEDS: CLOTRIMAZOLE 1% CREAM 15 GM TUBE TOP SCH (21:54)
[2019-01-10 23:03] LABS: Folate > 24.0 NG/ML (5.4-24.0); Vitamin B12 897 PG/ML (211-911)
[2019-01-11] MEDS: ACETAMINOPHEN 325 MG TABLET PO PRN (04:14)
[2019-01-11] MEDS ORDERED: hydrALAZINE 20 MG/1 ML VIAL IV ONE (04:51)
[2019-01-11 05:10] LABS: Basophils % 0.3 % (0.0-0.8); Eosinophils % 0.2 % (0.00-10.9); Hematocrit 21.3 VOL% (35.7-47.0); Hemoglobin 6.6 GM/DL (12.0-16.0); Immature Granulocytes % 0.7 %; Immature Granulocytes Absolute 0.09 #; Lymphocytes # 1.7 10*3/uL (1.4-4.0); Lymphocytes % 13.3 % (21.3-54.2); Mean Corpuscular Volume 95.5 FL (87-102); Mean Platelet Volume 10.7 FL (9.6-12.0); Monocytes % 6.1 % (1.7-12.7); Neutrophils % 79.4 % (38.7-73.9); Platelet Count 273 T/CUMM (130-400); Red Blood Count 2.23 MC/CUMM (3.8-5.5); Red Cell Distribution Width 17.7 % (9.3-17.3); White Blood Count 12.6 T/CUMM (4-12)
[2019-01-11] MEDS ORDERED: PANTOPRAZOLE 40 MG TABLET PO SCH (09:00)
[2019-01-11] MEDS: LACTATED RINGERS 1,000 ML IV SCH (10:44)
[2019-01-11] MEDS: clonazePAM 0.5 MG TABLET PO SCH ×2 (12:06→21:46)
[2019-01-11] MEDS: glipiZIDE 5 MG TABLET PO SCH ×2 (12:06→21:47)
[2019-01-11] MEDS: FERROUS SULFATE 325 MG TABLET PO SCH ×2 (12:06→21:47)
[2019-01-11] MEDS: FOLIC ACID 1 MG TABLET PO SCH (12:06)
[2019-01-11] MEDS: FEXOFENADINE 180 MG TABLET PO SCH (12:07)
[2019-01-11] MEDS: DOCUSATE SODIUM 100 MG CAPSULE PO SCH ×2 (12:07→21:46)
[2019-01-11] MEDS: hydrALAZINE 25 MG TABLET PO SCH ×2 (12:07→19:25)
[2019-01-11] MEDS: INSULIN LISPRO 100 UNIT/ML SUBCUT SCH ×4 (12:08→21:47)
[2019-01-11] MEDS: CLOTRIMAZOLE 1% CREAM 15 GM TUBE TOP SCH ×2 (12:12→21:49)
[2019-01-11] MEDS: PANTOPRAZOLE 40 MG TABLET PO SCH (12:12)
[2019-01-11] MEDS: amLODIPine 10 MG TABLET PO SCH (12:12)
[2019-01-11] MEDS: ALLOPURINOL 100 MG TABLET PO SCH (12:12)
[2019-01-11] MEDS ORDERED: SODIUM CHLORIDE 0.9% 1,000 ML IV PRN (13:22)
[2019-01-11] MEDS ORDERED: DEXTROSE 50% 25 GM/50 ML VIAL IV PRN (21:14)
[2019-01-11] MEDS ORDERED: GLUCAGON 1 MG VIAL IM PRN (21:14)
[2019-01-12] MEDS: hydrALAZINE 25 MG TABLET PO SCH ×4 (00:24→21:18)
[2019-01-12] MEDS ORDERED: DEXTROSE 10% 250 ML IV ONE (01:10)
[2019-01-12 05:55] LABS: Osmolality,Calculated 285.3 MOS/KG (273-304)
[2019-01-12] MEDS: INSULIN LISPRO 100 UNIT/ML SUBCUT SCH ×4 (08:14→21:20)
[2019-01-12] MEDS: glipiZIDE 5 MG TABLET PO SCH ×4 (08:14→21:20)
[2019-01-12 08:44] LABS: Basophils % 0.3 % (0.0-0.8); Eosinophils # 0.1 10*3/uL (0.0-0.87); Eosinophils % 1.5 % (0.00-10.9); Hematocrit 29.3 VOL% (35.7-47.0); Immature Granulocytes % 0.5 %; Immature Granulocytes Absolute 0.05 #; Lymphocytes # 1.4 10*3/uL (1.4-4.0); Lymphocytes % 14.2 % (21.3-54.2); Mean Corpuscular HGB Conc 32.4 GM/DL (32-36); Mean Corpuscular Volume 92.7 FL (87-102); Mean Platelet Volume 10.9 FL (9.6-12.0); Monocytes % 6.3 % (1.7-12.7); Neutrophils % 77.2 % (38.7-73.9); Red Cell Distribution Width 17.1 % (9.3-17.3); White Blood Count 9.5 T/CUMM (4-12)
[2019-01-12 08:48] LABS: Hemoglobin 9.5 GM/DL (12.0-16.0); Red Blood Count 3.16 MC/CUMM (3.8-5.5)
[2019-01-12 08:49] LABS: Platelet Count 205 T/CUMM (130-400)
[2019-01-12] MEDS: ACETAMINOPHEN 325 MG TABLET PO PRN ×2 (09:39→19:16)
[2019-01-12] MEDS: ALLOPURINOL 100 MG TABLET PO SCH (09:44)
[2019-01-12] MEDS: PANTOPRAZOLE 40 MG TABLET PO SCH (09:44)
[2019-01-12] MEDS: DOCUSATE SODIUM 100 MG CAPSULE PO SCH ×2 (09:44→21:18)
[2019-01-12] MEDS: FOLIC ACID 1 MG TABLET PO SCH (09:45)
[2019-01-12] MEDS: CLOTRIMAZOLE 1% CREAM 15 GM TUBE TOP SCH ×2 (09:45→21:19)
[2019-01-12] MEDS: FEXOFENADINE 180 MG TABLET PO SCH (09:45)
[2019-01-12] MEDS: amLODIPine 10 MG TABLET PO SCH (09:45)
[2019-01-12] MEDS: FERROUS SULFATE 325 MG TABLET PO SCH ×2 (09:45→21:18)
[2019-01-12] MEDS: clonazePAM 0.5 MG TABLET PO SCH ×2 (09:45→21:18)
[2019-01-12] MEDS: POLYETHYLENE GLYCOL POWDER 17 GM PACK PO SCH ×2 (10:03→21:19)
[2019-01-12] MEDS: LACTATED RINGERS 1,000 ML IV SCH ×2 (20:10→20:11)
[2019-01-12] MEDS: HYDROCORTISONE 2.5% RECTAL CREAM 30 GM TUBE TOP SCH (21:31)
[2019-01-13] MEDS: ONDANSETRON 4 MG/2 ML VIAL IV PRN (04:54)
[2019-01-13 05:03] LABS: Hematocrit 32.7 VOL% (35.7-47.0); Hemoglobin 10.8 GM/DL (12.0-16.0)
[2019-01-13 05:23] LABS: Calcium 9.4 MG/DL (8.5-10.1)
[2019-01-13] MEDS: PANTOPRAZOLE 40 MG TABLET PO SCH (09:14)
[2019-01-13] MEDS: hydrALAZINE 25 MG TABLET PO SCH ×2 (09:14→16:10)
[2019-01-13] MEDS: amLODIPine 10 MG TABLET PO SCH (09:14)
[2019-01-13] MEDS: FERROUS SULFATE 325 MG TABLET PO SCH (09:14)
[2019-01-13] MEDS: ALLOPURINOL 100 MG TABLET PO SCH (09:14)
[2019-01-13] MEDS: DOCUSATE SODIUM 100 MG CAPSULE PO SCH ×2 (09:14→20:14)
[2019-01-13] MEDS: FOLIC ACID 1 MG TABLET PO SCH (09:14)
[2019-01-13] MEDS: clonazePAM 0.5 MG TABLET PO SCH ×2 (09:14→20:14)
[2019-01-13] MEDS: FEXOFENADINE 180 MG TABLET PO SCH (09:14)
[2019-01-13] MEDS: POLYETHYLENE GLYCOL POWDER 17 GM PACK PO SCH ×2 (09:15→20:14)
[2019-01-13] MEDS: HYDROCORTISONE 2.5% RECTAL CREAM 30 GM TUBE TOP SCH ×2 (09:15→20:15)
[2019-01-13] MEDS: CLOTRIMAZOLE 1% CREAM 15 GM TUBE TOP SCH ×2 (09:15→20:15)
[2019-01-13] MEDS: glipiZIDE 5 MG TABLET PO SCH ×2 (09:16→20:14)
[2019-01-13] MEDS: LACTATED RINGERS 1,000 ML IV SCH ×2 (09:18→22:22)
[2019-01-13] MEDS: INSULIN LISPRO 100 UNIT/ML SUBCUT SCH ×4 (09:18→20:21)
[2019-01-14] MEDS: ONDANSETRON 4 MG/2 ML VIAL IV PRN (02:01)
[2019-01-14 06:06] LABS: Basophils % 0.2 % (0.0-0.8); Eosinophils % 0.3 % (0.00-10.9); Hematocrit 29.9 VOL% (35.7-47.0); Immature Granulocytes % 0.6 %; Immature Granulocytes Absolute 0.08 #; Lymphocytes % 6.7 % (21.3-54.2); Mean Corpuscular HGB Conc 33.4 GM/DL (32-36); Mean Corpuscular Volume 91.2 FL (87-102); Mean Platelet Volume 10.7 FL (9.6-12.0); Monocytes % 4.9 % (1.7-12.7); Neutrophils % 87.3 % (38.7-73.9); Platelet Count 227 T/CUMM (130-400); Red Blood Count 3.28 MC/CUMM (3.8-5.5); Red Cell Distribution Width 16.3 % (9.3-17.3); White Blood Count 14.2 T/CUMM (4-12)
[2019-01-14 06:30] LABS: Albumin 2.4 G/DL (3.4-5.0); Bilirubin,Total 1.1 MG/DL (0.2-1.0); Calcium 9.2 MG/DL (8.5-10.1); Osmolality,Calculated 289.4 MOS/KG (273-304); Total Protein 6.1 G/DL (6.4-8.3)
[2019-01-14] MEDS: INSULIN LISPRO 100 UNIT/ML SUBCUT SCH ×4 (08:28→20:21)
[2019-01-14] MEDS: amLODIPine 10 MG TABLET PO SCH (08:32)
[2019-01-14] MEDS: POLYETHYLENE GLYCOL POWDER 17 GM PACK PO SCH ×2 (08:32→20:37)
[2019-01-14] MEDS: ALLOPURINOL 100 MG TABLET PO SCH (08:33)
[2019-01-14] MEDS: FOLIC ACID 1 MG TABLET PO SCH (08:33)
[2019-01-14] MEDS: PANTOPRAZOLE 40 MG TABLET PO SCH (08:33)
[2019-01-14] MEDS: clonazePAM 0.5 MG TABLET PO SCH ×2 (08:33→20:37)
[2019-01-14] MEDS: FEXOFENADINE 180 MG TABLET PO SCH (08:33)
[2019-01-14] MEDS: DOCUSATE SODIUM 100 MG CAPSULE PO SCH ×2 (08:33→20:37)
[2019-01-14] MEDS: glipiZIDE 5 MG TABLET PO SCH ×2 (08:33→20:21)
[2019-01-14] MEDS: HYDROCORTISONE 2.5% RECTAL CREAM 30 GM TUBE TOP SCH ×2 (08:36→20:37)
[2019-01-14] MEDS: CLOTRIMAZOLE 1% CREAM 15 GM TUBE TOP SCH ×2 (08:37→20:37)
[2019-01-14] MEDS ORDERED: cloNIDine 0.2 MG/24 HR PATCH TRANSDERM SCH (09:00)
[2019-01-14] MEDS: LACTATED RINGERS 1,000 ML IV SCH (11:38)
[2019-01-14] MEDS ORDERED: hydrALAZINE 20 MG/1 ML VIAL IV ONE (23:55)
[2019-01-15] MEDS: LACTATED RINGERS 1,000 ML IV SCH ×2 (00:54→13:40)
[2019-01-15 05:13] LABS: Basophils % 0.3 % (0.0-0.8); Eosinophils # 0.1 10*3/uL (0.0-0.87); Eosinophils % 0.5 % (0.00-10.9); Hematocrit 30.5 VOL% (35.7-47.0); Hemoglobin 9.9 GM/DL (12.0-16.0); Immature Granulocytes % 0.8 %; Immature Granulocytes Absolute 0.09 #; Lymphocytes # 0.8 10*3/uL (1.4-4.0); Lymphocytes % 6.7 % (21.3-54.2); Mean Corpuscular HGB Conc 32.5 GM/DL (32-36); Mean Corpuscular Volume 91.3 FL (87-102); Mean Platelet Volume 10.5 FL (9.6-12.0); Monocytes % 6.1 % (1.7-12.7); Neutrophils % 85.6 % (38.7-73.9); Platelet Count 224 T/CUMM (130-400); Red Blood Count 3.34 MC/CUMM (3.8-5.5)
[2019-01-15 05:24] LABS: Calcium 9.7 MG/DL (8.5-10.1); Osmolality,Calculated 291.3 MOS/KG (273-304)
[2019-01-15] MEDS: amLODIPine 10 MG TABLET PO SCH (08:04)
[2019-01-15] MEDS: INSULIN LISPRO 100 UNIT/ML SUBCUT SCH ×4 (09:10→22:55)
[2019-01-15] MEDS: clonazePAM 0.5 MG TABLET PO SCH ×2 (09:49→20:38)
[2019-01-15] MEDS: POLYETHYLENE GLYCOL POWDER 17 GM PACK PO SCH ×4 (09:50→20:42)
[2019-01-15] MEDS: CLOTRIMAZOLE 1% CREAM 15 GM TUBE TOP SCH ×2 (09:51→20:55)
[2019-01-15] MEDS: glipiZIDE 5 MG TABLET PO SCH ×2 (09:52→20:38)
[2019-01-15] MEDS: DOCUSATE SODIUM 100 MG CAPSULE PO SCH ×2 (09:52→20:39)
[2019-01-15] MEDS: FEXOFENADINE 180 MG TABLET PO SCH (09:52)
[2019-01-15] MEDS: ALLOPURINOL 100 MG TABLET PO SCH (09:52)
[2019-01-15] MEDS: PANTOPRAZOLE 40 MG TABLET PO SCH (09:52)
[2019-01-15] MEDS: FOLIC ACID 1 MG TABLET PO SCH (09:53)
[2019-01-15] MEDS: ONDANSETRON 4 MG/2 ML VIAL IV PRN (09:56)
[2019-01-15] MEDS: HYDROCORTISONE 2.5% RECTAL CREAM 30 GM TUBE TOP SCH ×2 (10:30→20:54)
[2019-01-16] MEDS: LACTATED RINGERS 1,000 ML IV SCH ×2 (02:07→14:31)
[2019-01-16] MEDS: dilTIAZem Drip 125 MG/125 ML PREMIX IV SCH (02:51)
[2019-01-16] MEDS ORDERED: METOPROLOL TARTRATE 5 MG/5 ML VIAL IV ONE (08:07)
[2019-01-16 09:11] LABS: Basophils % 0.2 % (0.0-0.8); Eosinophils % 0.3 % (0.00-10.9); Hematocrit 28.8 VOL% (35.7-47.0); Hemoglobin 9.3 GM/DL (12.0-16.0); Immature Granulocytes % 1.7 %; Immature Granulocytes Absolute 0.22 #; Lymphocytes # 0.7 10*3/uL (1.4-4.0); Lymphocytes % 5.1 % (21.3-54.2); Mean Corpuscular HGB Conc 32.3 GM/DL (32-36); Mean Corpuscular Volume 92.3 FL (87-102); Mean Platelet Volume 10.2 FL (9.6-12.0); Monocytes % 6.3 % (1.7-12.7); Neutrophils % 86.4 % (38.7-73.9); Platelet Count 245 T/CUMM (130-400); Red Blood Count 3.12 MC/CUMM (3.8-5.5); Red Cell Distribution Width 16.4 % (9.3-17.3); White Blood Count 12.8 T/CUMM (4-12)
[2019-01-16 09:33] LABS: Apearance,Urine CLOUDY (Clear); Bacteria,Urine Many /HPF (Few); Bilirubin,Urine Negative (Negative); Blood, Urine Small mg/dL (Negative); Glucose,Urine (UA) Negative (Negative); Ketones,Urine Negative (Negative); Nitrite,Urine Negative (Negative); Protein,Urine 100 MG/DL; RBC,Urine 379 /HPF (0-4); Urine Color Yellow (Yellow); Urine Urobilinogen < 2.0 EU/DL (0.2-1.0); WBC,Urine 5587 /HPF (0-6)
[2019-01-16 09:35] LABS: Calcium 9.7 MG/DL (8.5-10.1); Osmolality,Calculated 294.5 MOS/KG (273-304)
[2019-01-16] MEDS: cefTRIAXone 1,000 MG in SYRINGE 1 EACH IV SCH (10:20)
[2019-01-16] MEDS: INSULIN LISPRO 100 UNIT/ML SUBCUT SCH ×4 (10:20→22:13)
[2019-01-16] MEDS: ACETAMINOPHEN 325 MG TABLET PO PRN (10:21)
[2019-01-16] MEDS: FEXOFENADINE 180 MG TABLET PO SCH (10:21)
[2019-01-16] MEDS: ALLOPURINOL 100 MG TABLET PO SCH (10:21)
[2019-01-16] MEDS: PANTOPRAZOLE 40 MG TABLET PO SCH (10:21)
[2019-01-16] MEDS: FOLIC ACID 1 MG TABLET PO SCH (10:21)
[2019-01-16] MEDS: DOCUSATE SODIUM 100 MG CAPSULE PO SCH ×2 (10:22→21:53)
[2019-01-16] MEDS: glipiZIDE 5 MG TABLET PO SCH ×2 (10:22→21:53)
[2019-01-16] MEDS: DILTIAZEM 60 MG TABLET PO SCH ×4 (10:22→21:53)
[2019-01-16] MEDS: amLODIPine 10 MG TABLET PO SCH (10:22)
[2019-01-16] MEDS: CLOTRIMAZOLE 1% CREAM 15 GM TUBE TOP SCH ×2 (10:23→21:53)
[2019-01-16] MEDS: HYDROCORTISONE 2.5% RECTAL CREAM 30 GM TUBE TOP SCH ×2 (10:23→21:53)
[2019-01-16] MEDS: clonazePAM 0.5 MG TABLET PO SCH ×2 (10:23→21:53)
[2019-01-16] MEDS: POLYETHYLENE GLYCOL POWDER 17 GM PACK PO SCH ×2 (10:23→21:53)
[2019-01-16 10:50] LABS: Thyroid Stimulating Hormone 14.1 uIU/ml (0.358-3.74)
[2019-01-16] MEDS ORDERED: MAGNESIUM SULF RIDER 4 GM in PREMIX 1 EACH IV PRN (11:35)
[2019-01-16] MEDS ORDERED: MAGNESIUM SULF RIDER 2 GM in PREMIX 1 EACH IV PRN (11:35)
[2019-01-16 12:17] LABS: Basophils % 0.2 % (0.0-0.8); Eosinophils % 0.2 % (0.00-10.9); Hematocrit 29.2 VOL% (35.7-47.0); Hemoglobin 9.6 GM/DL (12.0-16.0); Immature Granulocytes Absolute 0.12 #; Lymphocytes # 0.8 10*3/uL (1.4-4.0); Lymphocytes % 6.4 % (21.3-54.2); Mean Corpuscular HGB Conc 32.9 GM/DL (32-36); Mean Corpuscular Volume 91.8 FL (87-102); Mean Platelet Volume 10.7 FL (9.6-12.0); Monocytes % 7.3 % (1.7-12.7); Neutrophils % 84.9 % (38.7-73.9); Platelet Count 223 T/CUMM (130-400); Red Blood Count 3.18 MC/CUMM (3.8-5.5); Red Cell Distribution Width 16.1 % (9.3-17.3); White Blood Count 12.1 T/CUMM (4-12)
[2019-01-16 12:30] LABS: PT Patient Result 11.2 SECS (9.6-12.2); Partial Thromboplastin Time 40.2 SECS (20.8-36.0)
[2019-01-16] MEDS: SODIUM CHLORIDE 0.9% 1,000 ML IV SCH (12:30)
[2019-01-16 12:36] LABS: Albumin 2.2 G/DL (3.4-5.0); Bilirubin,Total 0.5 MG/DL (0.2-1.0); Calcium 9.3 MG/DL (8.5-10.1); Osmolality,Calculated 286.7 MOS/KG (273-304); Total Protein 6.1 G/DL (6.4-8.3)
[2019-01-16] MEDS ORDERED: hydrALAZINE 20 MG/1 ML VIAL IV ONE (12:36)
[2019-01-16] MEDS: hydrALAZINE 20 MG/1 ML VIAL IV PRN (16:45)
[2019-01-16] MEDS: DEXTROSE 10% 250 ML BAG IV PRN ×2 (16:49→23:48)
[2019-01-16] MEDS ORDERED: ASCORBIC ACID 500 MG TABLET PO SCH (21:00)
[2019-01-17 04:37] LABS: Basophils % 0.2 % (0.0-0.8); Eosinophils # 0.2 10*3/uL (0.0-0.87); Eosinophils % 1.6 % (0.00-10.9); Hematocrit 28.6 VOL% (35.7-47.0); Hemoglobin 9.1 GM/DL (12.0-16.0); Immature Granulocytes % 1.2 %; Immature Granulocytes Absolute 0.15 #; Lymphocytes # 1.3 10*3/uL (1.4-4.0); Lymphocytes % 10.2 % (21.3-54.2); Mean Corpuscular HGB Conc 31.8 GM/DL (32-36); Mean Corpuscular Volume 92.3 FL (87-102); Mean Platelet Volume 10.8 FL (9.6-12.0); Monocytes % 9.4 % (1.7-12.7); Neutrophils % 77.4 % (38.7-73.9); Platelet Count 239 T/CUMM (130-400); Red Cell Distribution Width 16.2 % (9.3-17.3); White Blood Count 12.3 T/CUMM (4-12)
[2019-01-17 05:18] LABS: Calcium 9.9 MG/DL (8.5-10.1)
[2019-01-17] MEDS: DEXTROSE 10% 250 ML BAG IV PRN (06:15)
[2019-01-17] MEDS: hydrALAZINE 20 MG/1 ML VIAL IV PRN (08:24)
[2019-01-17] MEDS: INSULIN LISPRO 100 UNIT/ML SUBCUT SCH ×4 (10:30→22:00)
[2019-01-17] MEDS: dilTIAZem Drip 125 MG/125 ML PREMIX IV SCH (10:30)
[2019-01-17] MEDS: ASPIRIN EC 81 MG TABLET PO SCH (10:51)
[2019-01-17] MEDS: DOCUSATE SODIUM 100 MG CAPSULE PO SCH ×2 (10:51→22:00)
[2019-01-17] MEDS: FEXOFENADINE 180 MG TABLET PO SCH (10:51)
[2019-01-17] MEDS: HYDROCORTISONE 2.5% RECTAL CREAM 30 GM TUBE TOP SCH ×2 (10:51→21:59)
[2019-01-17] MEDS: DILTIAZEM 60 MG TABLET PO SCH ×4 (10:51→21:58)
[2019-01-17] MEDS: ALLOPURINOL 100 MG TABLET PO SCH (10:52)
[2019-01-17] MEDS: POLYETHYLENE GLYCOL POWDER 17 GM PACK PO SCH ×2 (10:52→22:00)
[2019-01-17] MEDS: FOLIC ACID 1 MG TABLET PO SCH (10:52)
[2019-01-17] MEDS: clonazePAM 0.5 MG TABLET PO SCH (10:52)
[2019-01-17] MEDS: amLODIPine 10 MG TABLET PO SCH (10:52)
[2019-01-17] MEDS: PANTOPRAZOLE 40 MG TABLET PO SCH (10:52)
[2019-01-17] MEDS: CLOTRIMAZOLE 1% CREAM 15 GM TUBE TOP SCH ×2 (10:52→21:59)
[2019-01-17] MEDS: SODIUM CHLORIDE 0.9% 1,000 ML IV SCH (13:00)
[2019-01-17] MEDS: cefTRIAXone 1,000 MG in SYRINGE 1 EACH IV SCH (13:12)
[2019-01-17] MEDS: DEXTROSE 5% NACL 0.9% 1,000 ML IV SCH (17:35)
[2019-01-18 05:24] LABS: Basophils # 0.1 10*3/uL (0.0-0.2); Basophils % 0.5 % (0.0-0.8); Eosinophils # 0.2 10*3/uL (0.0-0.87); Hematocrit 27.4 VOL% (35.7-47.0); Hemoglobin 8.9 GM/DL (12.0-16.0); Immature Granulocytes % 1.6 %; Immature Granulocytes Absolute 0.16 #; Lymphocytes # 1.3 10*3/uL (1.4-4.0); Lymphocytes % 13.3 % (21.3-54.2); Mean Corpuscular HGB Conc 32.5 GM/DL (32-36); Mean Corpuscular Volume 92.6 FL (87-102); Mean Platelet Volume 11.2 FL (9.6-12.0); Neutrophils % 74.6 % (38.7-73.9); Platelet Count 259 T/CUMM (130-400); Red Blood Count 2.96 MC/CUMM (3.8-5.5); Red Cell Distribution Width 15.7 % (9.3-17.3); White Blood Count 10.1 T/CUMM (4-12)
[2019-01-18 05:54] LABS: Osmolality,Calculated 290.4 MOS/KG (273-304)
[2019-01-18] MEDS: dilTIAZem Drip 125 MG/125 ML PREMIX IV SCH (09:34)
[2019-01-18] MEDS: INSULIN LISPRO 100 UNIT/ML SUBCUT SCH ×4 (09:34→20:37)
[2019-01-18] MEDS: HYDROCORTISONE 2.5% RECTAL CREAM 30 GM TUBE TOP SCH ×2 (09:35→20:38)
[2019-01-18] MEDS: FEXOFENADINE 180 MG TABLET PO SCH (09:35)
[2019-01-18] MEDS: DOCUSATE SODIUM 100 MG CAPSULE PO SCH ×2 (09:35→20:37)
[2019-01-18] MEDS: FOLIC ACID 1 MG TABLET PO SCH (09:35)
[2019-01-18] MEDS: POLYETHYLENE GLYCOL POWDER 17 GM PACK PO SCH ×2 (09:35→20:38)
[2019-01-18] MEDS: CLOTRIMAZOLE 1% CREAM 15 GM TUBE TOP SCH ×2 (09:35→20:38)
[2019-01-18] MEDS: DILTIAZEM 60 MG TABLET PO SCH ×2 (09:35→14:55)
[2019-01-18] MEDS: amLODIPine 10 MG TABLET PO SCH (09:35)
[2019-01-18] MEDS: ASPIRIN EC 81 MG TABLET PO SCH (09:35)
[2019-01-18] MEDS: PANTOPRAZOLE 40 MG TABLET PO SCH (09:35)
[2019-01-18] MEDS: ALLOPURINOL 100 MG TABLET PO SCH (09:36)
[2019-01-18] MEDS: cefTRIAXone 1,000 MG in SYRINGE 1 EACH IV SCH (09:36)
[2019-01-18] MEDS ORDERED: CARVEDILOL 6.25 MG TABLET PO SCH (11:59)
[2019-01-18] MEDS: DEXTROSE 5% NACL 0.9% 1,000 ML IV SCH (13:44)
[2019-01-18] MEDS: SODIUM CHLORIDE 0.9% 1,000 ML IV SCH (14:32)
[2019-01-18] MEDS: DILTIAZEM 90 MG TABLET PO SCH ×2 (18:28→20:34)
[2019-01-19] MEDS: dilTIAZem Drip 125 MG/125 ML PREMIX IV SCH (02:50)
[2019-01-19 05:10] LABS: Calcium 8.7 MG/DL (8.5-10.1); Osmolality,Calculated 288.4 MOS/KG (273-304)
[2019-01-19] MEDS: INSULIN LISPRO 100 UNIT/ML SUBCUT SCH ×4 (07:42→22:38)
[2019-01-19] MEDS: DILTIAZEM 90 MG TABLET PO SCH ×2 (09:57→12:51)
[2019-01-19] MEDS: ALLOPURINOL 100 MG TABLET PO SCH (09:57)
[2019-01-19] MEDS: FEXOFENADINE 180 MG TABLET PO SCH (09:58)
[2019-01-19] MEDS: POLYETHYLENE GLYCOL POWDER 17 GM PACK PO SCH ×3 (09:58→22:38)
[2019-01-19] MEDS: ASPIRIN EC 81 MG TABLET PO SCH (09:58)
[2019-01-19] MEDS: amLODIPine 10 MG TABLET PO SCH (09:58)
[2019-01-19] MEDS: PANTOPRAZOLE 40 MG TABLET PO SCH (09:58)
[2019-01-19] MEDS: DOCUSATE SODIUM 100 MG CAPSULE PO SCH ×2 (09:58→22:38)
[2019-01-19] MEDS: FOLIC ACID 1 MG TABLET PO SCH (09:58)
[2019-01-19] MEDS: cefTRIAXone 1,000 MG in SYRINGE 1 EACH IV SCH (09:58)
[2019-01-19] MEDS: HYDROCORTISONE 2.5% RECTAL CREAM 30 GM TUBE TOP SCH ×2 (10:29→22:37)
[2019-01-19] MEDS: CLOTRIMAZOLE 1% CREAM 15 GM TUBE TOP SCH ×2 (10:29→22:38)
[2019-01-19] MEDS: ACETAMINOPHEN 325 MG TABLET PO PRN (11:25)
[2019-01-19] MEDS: DEXTROSE 5% NACL 0.9% 1,000 ML IV SCH (13:02)
[2019-01-19] MEDS: SODIUM CHLORIDE 0.9% 1,000 ML IV SCH (13:03)
[2019-01-19] MEDS: DILTIAZEM 60 MG TABLET PO SCH ×2 (16:58→22:36)
[2019-01-19 19:59] LABS: Amorphous Crystals,Urine Occasional /HPF (Few); Apearance,Urine CLOUDY (Clear); Bilirubin,Urine Negative (Negative); Blood, Urine Negative (Negative); Glucose,Urine (UA) Negative (Negative); Hyaline Casts,Urine 8 /LPF (0-3); Ketones,Urine Negative (Negative); Mucus,Urine Occasional /LPF (Occasional); Nitrite,Urine Negative (Negative); Protein,Urine 100 MG/DL; Squamous Epithelial Cell,Urine Occasional /HPF (0-10); Urine Color Yellow (Yellow); Urine Specific Gravity 1.014 (1.001-1.035); Urine Urobilinogen < 2.0 EU/DL (0.2-1.0); WBC,Urine 3 /HPF (0-6)
[2019-01-19] MEDS ORDERED: CARVEDILOL 6.25 MG TABLET PO SCH (21:00)
[2019-01-20] MEDS ORDERED: cloNIDine 0.2 MG/24 HR PATCH TRANSDERM SCH (09:00)
[2019-01-20] MEDS: POLYETHYLENE GLYCOL POWDER 17 GM PACK PO SCH ×2 (09:21→22:31)
[2019-01-20] MEDS: INSULIN LISPRO 100 UNIT/ML SUBCUT SCH ×4 (09:22→22:30)
[2019-01-20] MEDS: ALLOPURINOL 100 MG TABLET PO SCH (09:23)
[2019-01-20] MEDS: FEXOFENADINE 180 MG TABLET PO SCH (09:23)
[2019-01-20] MEDS: CARVEDILOL 12.5 MG TABLET PO SCH ×2 (09:23→22:34)
[2019-01-20] MEDS: DOCUSATE SODIUM 100 MG CAPSULE PO SCH ×2 (09:24→22:31)
[2019-01-20] MEDS: FOLIC ACID 1 MG TABLET PO SCH (09:24)
[2019-01-20] MEDS: amLODIPine 10 MG TABLET PO SCH (09:24)
[2019-01-20] MEDS: DILTIAZEM 30 MG TABLET PO SCH ×4 (09:24→22:31)
[2019-01-20] MEDS: PANTOPRAZOLE 40 MG TABLET PO SCH (09:24)
[2019-01-20] MEDS: ASPIRIN EC 81 MG TABLET PO SCH (09:24)
[2019-01-20] MEDS: HYDROCORTISONE 2.5% RECTAL CREAM 30 GM TUBE TOP SCH ×2 (09:25→22:34)
[2019-01-20] MEDS: CLOTRIMAZOLE 1% CREAM 15 GM TUBE TOP SCH ×2 (09:25→22:34)
[2019-01-20] MEDS: cefTRIAXone 1,000 MG in SYRINGE 1 EACH IV SCH (09:36)
[2019-01-20] MEDS: cloNIDine 0.1 MG TABLET PO SCH ×2 (10:01→15:24)
[2019-01-21] MEDS: cloNIDine 0.1 MG TABLET PO SCH ×4 (01:01→21:52)
[2019-01-21 06:31] LABS: Basophils % 0.5 % (0.0-0.8); Eosinophils # 0.1 10*3/uL (0.0-0.87); Eosinophils % 2.4 % (0.00-10.9); Hematocrit 25.5 VOL% (35.7-47.0); Hemoglobin 8.2 GM/DL (12.0-16.0); Immature Granulocytes % 2.9 %; Immature Granulocytes Absolute 0.17 #; Lymphocytes % 17.6 % (21.3-54.2); Mean Corpuscular HGB Conc 32.2 GM/DL (32-36); Mean Corpuscular Volume 92.7 FL (87-102); Mean Platelet Volume 10.7 FL (9.6-12.0); Monocytes % 9.8 % (1.7-12.7); Neutrophils % 66.8 % (38.7-73.9); Platelet Count 246 T/CUMM (130-400); Red Blood Count 2.75 MC/CUMM (3.8-5.5); Red Cell Distribution Width 15.4 % (9.3-17.3); White Blood Count 5.8 T/CUMM (4-12)
[2019-01-21 06:52] LABS: Calcium 8.5 MG/DL (8.5-10.1); Osmolality,Calculated 294.1 MOS/KG (273-304)
[2019-01-21] MEDS: INSULIN LISPRO 100 UNIT/ML SUBCUT SCH ×4 (09:32→21:52)
[2019-01-21] MEDS: PANTOPRAZOLE 40 MG TABLET PO SCH (09:32)
[2019-01-21] MEDS: ASPIRIN EC 81 MG TABLET PO SCH (09:33)
[2019-01-21] MEDS: CARVEDILOL 12.5 MG TABLET PO SCH (09:33)
[2019-01-21] MEDS: amLODIPine 10 MG TABLET PO SCH (09:33)
[2019-01-21] MEDS: DILTIAZEM 30 MG TABLET PO SCH (09:33)
[2019-01-21] MEDS: HYDROCORTISONE 2.5% RECTAL CREAM 30 GM TUBE TOP SCH ×2 (09:34→21:58)
[2019-01-21] MEDS: FOLIC ACID 1 MG TABLET PO SCH (09:34)
[2019-01-21] MEDS: FEXOFENADINE 180 MG TABLET PO SCH (09:34)
[2019-01-21] MEDS: POLYETHYLENE GLYCOL POWDER 17 GM PACK PO SCH ×2 (09:35→21:57)
[2019-01-21] MEDS: CLOTRIMAZOLE 1% CREAM 15 GM TUBE TOP SCH ×2 (09:35→21:58)
[2019-01-21] MEDS: DOCUSATE SODIUM 100 MG CAPSULE PO SCH ×2 (09:35→21:52)
[2019-01-21] MEDS: ALLOPURINOL 100 MG TABLET PO SCH (09:36)
[2019-01-21] MEDS: CARVEDILOL 25 MG TABLET PO SCH (21:52)
[2019-01-22] MEDS: INSULIN LISPRO 100 UNIT/ML SUBCUT SCH ×4 (08:23→22:21)
[2019-01-22] MEDS: FOLIC ACID 1 MG TABLET PO SCH (08:49)
[2019-01-22] MEDS: cloNIDine 0.1 MG TABLET PO SCH ×3 (08:49→22:17)
[2019-01-22] MEDS: FEXOFENADINE 180 MG TABLET PO SCH (08:49)
[2019-01-22] MEDS: ALLOPURINOL 100 MG TABLET PO SCH (08:49)
[2019-01-22] MEDS: CARVEDILOL 25 MG TABLET PO SCH ×2 (08:49→22:17)
[2019-01-22] MEDS: ASPIRIN EC 81 MG TABLET PO SCH (08:49)
[2019-01-22] MEDS: PANTOPRAZOLE 40 MG TABLET PO SCH (08:49)
[2019-01-22] MEDS: amLODIPine 10 MG TABLET PO SCH (08:49)
[2019-01-22] MEDS: DOCUSATE SODIUM 100 MG CAPSULE PO SCH ×2 (08:49→23:49)
[2019-01-22] MEDS: HYDROCORTISONE 2.5% RECTAL CREAM 30 GM TUBE TOP SCH ×2 (08:56→22:34)
[2019-01-22] MEDS: POLYETHYLENE GLYCOL POWDER 17 GM PACK PO SCH ×2 (08:56→23:49)
[2019-01-22] MEDS: CLOTRIMAZOLE 1% CREAM 15 GM TUBE TOP SCH ×2 (08:56→22:25)
[2019-01-22 10:27] LABS: Basophils % 0.5 % (0.0-0.8); Eosinophils # 0.2 10*3/uL (0.0-0.87); Eosinophils % 2.3 % (0.00-10.9); Hematocrit 25.2 VOL% (35.7-47.0); Immature Granulocytes % 2.2 %; Immature Granulocytes Absolute 0.14 #; Lymphocytes # 1.2 10*3/uL (1.4-4.0); Lymphocytes % 18.4 % (21.3-54.2); Mean Corpuscular HGB Conc 31.7 GM/DL (32-36); Mean Corpuscular Volume 92.6 FL (87-102); Mean Platelet Volume 9.9 FL (9.6-12.0); Monocytes % 8.1 % (1.7-12.7); Neutrophils % 68.5 % (38.7-73.9); Platelet Count 231 T/CUMM (130-400); Red Blood Count 2.72 MC/CUMM (3.8-5.5); Red Cell Distribution Width 15.9 % (9.3-17.3); White Blood Count 6.4 T/CUMM (4-12)
[2019-01-22 10:44] LABS: Osmolality,Calculated 293.1 MOS/KG (273-304)
[2019-01-23 04:51] LABS: Basophils % 0.4 % (0.0-0.8); Eosinophils # 0.1 10*3/uL (0.0-0.87); Eosinophils % 1.6 % (0.00-10.9); Hematocrit 24.8 VOL% (35.7-47.0); Immature Granulocytes % 2.1 %; Immature Granulocytes Absolute 0.16 #; Lymphocytes # 1.3 10*3/uL (1.4-4.0); Lymphocytes % 16.6 % (21.3-54.2); Mean Corpuscular HGB Conc 32.3 GM/DL (32-36); Mean Corpuscular Volume 92.5 FL (87-102); Mean Platelet Volume 10.6 FL (9.6-12.0); Monocytes % 7.7 % (1.7-12.7); Neutrophils % 71.6 % (38.7-73.9); Platelet Count 253 T/CUMM (130-400); Red Blood Count 2.68 MC/CUMM (3.8-5.5); Red Cell Distribution Width 15.5 % (9.3-17.3); White Blood Count 7.6 T/CUMM (4-12)
[2019-01-23 05:09] LABS: Calcium 9.1 MG/DL (8.5-10.1); Osmolality,Calculated 296.8 MOS/KG (273-304)
[2019-01-23] MEDS: INSULIN LISPRO 100 UNIT/ML SUBCUT SCH ×4 (08:22→22:18)
[2019-01-23] MEDS: POLYETHYLENE GLYCOL POWDER 17 GM PACK PO SCH ×2 (09:05→22:20)
[2019-01-23] MEDS: DOCUSATE SODIUM 100 MG CAPSULE PO SCH ×2 (09:06→22:19)
[2019-01-23] MEDS: cloNIDine 0.1 MG TABLET PO SCH ×4 (09:06→22:18)
[2019-01-23] MEDS: PANTOPRAZOLE 40 MG TABLET PO SCH (09:06)
[2019-01-23] MEDS: ALLOPURINOL 100 MG TABLET PO SCH (09:07)
[2019-01-23] MEDS: FEXOFENADINE 180 MG TABLET PO SCH (09:07)
[2019-01-23] MEDS: amLODIPine 10 MG TABLET PO SCH (09:07)
[2019-01-23] MEDS: ASPIRIN EC 81 MG TABLET PO SCH (09:08)
[2019-01-23] MEDS: CARVEDILOL 25 MG TABLET PO SCH ×2 (09:08→22:18)
[2019-01-23] MEDS: FOLIC ACID 1 MG TABLET PO SCH (09:08)
[2019-01-23] MEDS: HYDROCORTISONE 2.5% RECTAL CREAM 30 GM TUBE TOP SCH ×2 (09:09→22:18)
[2019-01-23] MEDS: CLOTRIMAZOLE 1% CREAM 15 GM TUBE TOP SCH ×2 (09:09→22:17)
[2019-01-24] MEDS: INSULIN LISPRO 100 UNIT/ML SUBCUT SCH ×4 (07:41→20:40)
[2019-01-24] MEDS: CLOTRIMAZOLE 1% CREAM 15 GM TUBE TOP SCH ×2 (08:57→20:40)
[2019-01-24] MEDS: DOCUSATE SODIUM 100 MG CAPSULE PO SCH ×2 (08:58→20:40)
[2019-01-24] MEDS: FEXOFENADINE 180 MG TABLET PO SCH (08:58)
[2019-01-24] MEDS: POLYETHYLENE GLYCOL POWDER 17 GM PACK PO SCH ×2 (08:58→20:41)
[2019-01-24] MEDS: cloNIDine 0.1 MG TABLET PO SCH ×3 (08:58→20:40)
[2019-01-24] MEDS: HYDROCORTISONE 2.5% RECTAL CREAM 30 GM TUBE TOP SCH ×2 (08:58→20:40)
[2019-01-24] MEDS: amLODIPine 10 MG TABLET PO SCH (08:58)
[2019-01-24] MEDS: CARVEDILOL 25 MG TABLET PO SCH ×2 (08:58→20:40)
[2019-01-24] MEDS: ASPIRIN EC 81 MG TABLET PO SCH (08:58)
[2019-01-24] MEDS: FOLIC ACID 1 MG TABLET PO SCH (08:58)
[2019-01-24] MEDS: PANTOPRAZOLE 40 MG TABLET PO SCH (08:58)
[2019-01-24] MEDS: ALLOPURINOL 100 MG TABLET PO SCH (09:24)
[2019-01-24] MEDS ORDERED: BISACODYL 10 MG SUPP RECTAL PRN (13:28)
[2019-01-24] MEDS: ACETAMINOPHEN 325 MG TABLET PO PRN (20:40)
[2019-01-25] MEDS: hydrALAZINE 20 MG/1 ML VIAL IV PRN (04:33)
[2019-01-25] MEDS: INSULIN LISPRO 100 UNIT/ML SUBCUT SCH ×2 (07:53→12:27)
[2019-01-25] MEDS: HYDROCORTISONE 2.5% RECTAL CREAM 30 GM TUBE TOP SCH (08:36)
[2019-01-25] MEDS: cloNIDine 0.1 MG TABLET PO SCH (09:03)
[2019-01-25] MEDS: FEXOFENADINE 180 MG TABLET PO SCH (09:03)
[2019-01-25] MEDS: ASPIRIN EC 81 MG TABLET PO SCH (09:03)
[2019-01-25] MEDS: POLYETHYLENE GLYCOL POWDER 17 GM PACK PO SCH (09:03)
[2019-01-25] MEDS: FOLIC ACID 1 MG TABLET PO SCH (09:03)
[2019-01-25] MEDS: PANTOPRAZOLE 40 MG TABLET PO SCH (09:03)
[2019-01-25] MEDS: DOCUSATE SODIUM 100 MG CAPSULE PO SCH (09:03)
[2019-01-25] MEDS: ALLOPURINOL 100 MG TABLET PO SCH (09:04)
[2019-01-25] MEDS: ACETAMINOPHEN 325 MG TABLET PO PRN (09:04)
[2019-01-25] MEDS: CARVEDILOL 25 MG TABLET PO SCH (09:04)
[2019-01-25] MEDS: amLODIPine 10 MG TABLET PO SCH (09:04)
[2019-01-25] MEDS: CLOTRIMAZOLE 1% CREAM 15 GM TUBE TOP SCH (09:05)
[2019-01-25 11:31] VITALS: BP 149/69
[2019-01-26] MEDS ORDERED: glipiZIDE 5 MG TABLET PO SCH (07:30)
[2019-01-26] MEDS ORDERED: DRONABINOL 2.5 MG CAPSULE PO SCH (09:00)
== END 2019-01-25 13:47 | disposition home health service (06) | DRG 391 ==
LOC: N.ED 14:38 → N.EDINP 17:20 → N.3E 17:43 → N.TELES 01-16 01:38
PROVIDERS: ADMIT Family Medicine; ATTEND Family Medicine

== ENCOUNTER 2019-02-13 14:34 | Inpatient (IN) ==
[2019-02-13] MEDS ORDERED: NOREPINEPHRINE 4 MG in SODIUM CHLORIDE 0.9% 246 ML IV PRN (17:24)
[2019-02-13] MEDS ORDERED: NOREPINEPHRINE 8 MG in SODIUM CHLORIDE 0.9% 242 ML IV PRN (17:25)
[2019-02-13] MEDS ORDERED: SODIUM CHLORIDE 0.9% 1,000 ML IV SCH (17:30)
[2019-02-13] MEDS ORDERED: DOPamine 800 MG/250 ML PREMIX IV PRN (17:31)
[2019-02-13] MEDS ORDERED: SODIUM CHLORIDE 0.9% 1,000 ML IV ONE ×2 (17:45→18:11)
[2019-02-13] MEDS ORDERED: PHENYLEPHRINE DRIP 40 MG/250 ML PREMIX IV PRN (17:53)
[2019-02-13 19:20] LABS: Basophils # 0.1 10*3/uL (0.0-0.2); Basophils % 0.3 % (0.0-0.8); Eosinophils % 0.1 % (0.00-10.9); Hematocrit 27.4 VOL% (35.7-47.0); Hemoglobin 8.2 GM/DL (12.0-16.0); Immature Granulocytes % 4.8 %; Immature Granulocytes Absolute 1.41 #; Lymphocytes # 2.8 10*3/uL (1.4-4.0); Lymphocytes % 9.4 % (21.3-54.2); Mean Corpuscular HGB Conc 29.9 GM/DL (32-36); Mean Corpuscular Volume 101.9 FL (87-102); Mean Platelet Volume 10.9 FL (9.6-12.0); Monocytes % 1.7 % (1.7-12.7); NRBC # 0.05 10*3/uL; Neutrophils % 83.7 % (38.7-73.9); Platelet Count 127 T/CUMM (130-400); Red Blood Count 2.69 MC/CUMM (3.8-5.5); Red Cell Distribution Width 16.1 % (9.3-17.3); White Blood Count 29.6 T/CUMM (4-12)
[2019-02-13 19:30] LABS: Calcium 7.1 MG/DL (8.5-10.1); Osmolality,Calculated 321.7 MOS/KG (273-304)
[2019-02-13 20:03] LABS: Band Neutrophils 8 % (0-10); Lymphocytes 6 % (20-55); Metamyelocytes 2 %; Myelocytes 6 %; Promyelocytes 1 %; Segmented Neutrophils 77 % (50-85); Total Cells Counted 100
[2019-02-13 20:09] VITALS: BP 42/33
[2019-02-13 20:15] LABS: Anisocytosis 2+; Hypochromasia 1+; Macrocytosis 2+; Poikilocytosis Slight
[2019-02-13 20:16] LABS: Ovalocytes 1+; Polychromasia Few; Schistocytes 1+
[2019-02-13 20:17] LABS: Spherocytes 2+
[2019-02-13 20:18] LABS: Platelet Estimate Adequate
[2019-02-14] MEDS ORDERED: PANTOPRAZOLE 40 MG VIAL IV SCH (09:00)
== END 2019-02-13 20:19 | disposition expired | DRG 208 ==
LOC: N.ICU 16:29
PROVIDERS: ADMIT Family Medicine; ATTEND Family Medicine